=== PATIENT | female | born 1995 | race Hispanic/Latino ===

== ENCOUNTER 2024-12-16 16:30 | Emergency (ER) | payer SELFPAY ==
[2024-12-16 16:41] VITALS: BP 157/97
[2024-12-16 17:20] LABS: Hematocrit 36.6 % (37.0-47.0); Hemoglobin 12.6 g/dL (12.0-16.0); Mean Corp Hgb Conc. 34.4 g/dL (33.0-37.0); Mean Corpuscular Volume 83.2 fL (81.0-99.0); Nucleated Red Blood Cells % 0 %; Platelet Count 406 10^3/uL (130-400); Red Cell Dist. Width 13.0 % (11.5-14.5)
[2024-12-16 17:21] LABS: Urine Character Clear (Clear)
[2024-12-16 17:41] LABS: HCG, Serum Qualitative Screen Positive
[2024-12-16 17:44] LABS: ALT (SGPT) 49 U/L (0-35); AST (SGOT) 34 U/L (14-36); Albumin 4.6 g/dl (3.5-5.0); Alkaline Phosphatase 64 U/L (38-126); Blood Urea Nitrogen 6 mg/dl (7-17); Calcium 9.5 mg/dl (8.4-10.2); Carbon Dioxide 20 mmol/L (22-30); Chloride 107 mmol/L (98-107); Glucose 101 mg/dl (70-99); Lipase 159 U/L (23-300); Potassium 3.6 mmol/L (3.5-5.1); Sodium 137 mmol/L (135-145); Total Protein 8.4 g/dl (6.3-8.2); eGFR > 60.00
[2024-12-16 18:04] LABS: Urine Urothelial Cell 0-2 /LPF (FEW)
[2024-12-16 22:51] LABS: Beta HCG Quantitative 78415.00 mIU/ml
--- NOTE | 2024-12-16 23:23 | ED.GENMED ---
History of Present Illness
General
Chief Complaint: Problems
Source: patient
Exam Limitations: none
Time Seen by Provider: 12/16/24 23:05
Nursing documentation reviewed up to this point in time: agreed with
History of Present Illness
History of Present Illness:
29-year-old female with no reported chronic medical issues G3, P2 who is approximately 8 weeks by dates (last menstrual period 10/19/2024) presents to the emergency department for evaluation of abdominal pain and spotting. Patient reports
that she had a positive test a few weeks ago. She says she has had intermittent cramping. She says she started to have some dark brown spotting and came to the ER this evening to be evaluated. She has not seen anyone for WEB PAGE DEVELOPER care
because she does not yet have insurance. She has not had any symptoms aside from occasional cramping and spotting. She denies passing any clots or bright red blood. She denies any vomiting or fever or any other acute issues. Patient reports 2
previous pregnancies were uncomplicated.
Past History
Past History
ED Past Medical History: None
ED Past Surgical History: None
Social History
Tobacco: Non-smoker
Alcohol: None
Drug: None
Living: with family
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
Family History
Family History: Other (n/c)
Review of Systems
Review of Systems
All Other Systems: ROS reviewed and negative except as documented in HPI and ROS
Constitutional: Denies fever or chills
Respiratory: Denies trouble breathing
Cardiac: Denies chest pain
ABD/GI: Reports abdominal pain; Denies nausea or vomiting
: Reports bleeding (Dark brown spotting); Denies dysuria or flank pain
Musculoskeletal: Denies neck pain or back pain
Neurological: Denies dizzy or headache
Phy Exam
Physical Exam
Physical Exam:
General: Awake, alert, oriented x3; no acute distress
Head: Normocephalic, atraumatic
Eyes: Conjunctiva normal, sclera anicteric
Throat: Airway intact, handling secretions
Neck: Trachea midline, supple without meningismus
Lungs: Clear to auscultation bilaterally, no wheezing, rales, rhonchi
Heart: Regular rate and rhythm, no murmurs, gallops, or rubs�triage tachycardia resolved by my assessment
Abd: Soft, non distended, nontender to deep palpation
Neuro: Grossly intact, ambulatory
Skin: Warm and dry
Extremities: Warm and well-perfused
Scores
Heart Failure Risk
Heart Failure Risk Score: Not Applicable
Heart Score for Chest Pain Patients
STEMI patient?: Not applicable
Withdrawal Assessment of Alcohol
Withdrawal Assessment Completed?: Not applicable
Course
Orders/Labs/Results
Orders:
Orders
12/16/24 16:49
Test Result ONCE
12/16/24 17:03
Beta HCG Quantitative Urgent
Comment: ADDON
CMP [Comprehensive Metabolic Panel] Urgent
Complete Blood Count/With Diff Urgent
Lipase Urgent
, Serum Qualitative Screen [HCG, Serum Qualitative Screen] Urgent
Urinalysis Reflex To Culture Urgent
Date Specimen was Collected: 12/16/24
Time Specimen was Collected: 16:49
Urine Microscopic Reflex Cult Urgent
Urine Culture Urgent
NISSA Source: U
Specimen Description:
Date Specimen was Collected: 12/16/24
Time Specimen was Collected: 16:49
12/16/24 21:36
Add On- LAB Urgent
Tests Added?: hcg quantitative
12/16/24 23:31
Type+Screen Urgent
12/17/24 00:00
US 1st Trimester Urgent
Reason For Exam: abd pain, +preg
Abnormal Lab Results
12/16/24
17:03
Hct 36.6 L %
(37.0-47.0)
Plt Count 406 H 10^3/uL
(130-400)
Carbon Dioxide 20 L mmol/L
(22-30)
BUN 6 L mg/dl
(7-17)
Creatinine 0.5 L mg/dL
(0.6-1.0)
Glucose 101 H mg/dl
(70-99)
ALT 49 H U/L
(0-35)
Total Protein 8.4 H g/dl
(6.3-8.2)
Ur Occult Blood Reflex 1+ A
(Negative)
Leukocyte Esterase Rfl 1+ A
(Negative)
Urine RBC 3-6 A /HPF
(0-2)
Urine Bacteria (Reflex) Moderate A
(Negative)
12/16/24 17:03
12/16/24 17:03
Vital Signs
Initial and Last Documented VS:
Initial Vital Signs
Temp Pulse Resp BP Pulse Ox
36.4 C 118 18 157/97 96
12/16/24 16:41 12/16/24 16:41 12/16/24 16:41 12/16/24 16:41 12/16/24 16:41
Last Documented Vital Signs
Temp Pulse Resp BP Pulse Ox
36.4 C 94 18 119/55 99
12/16/24 16:41 12/17/24 01:31 12/17/24 01:31 12/17/24 01:31 12/17/24 01:31
Information
Weeks gestation: Weeks: (8)
Location: N/A
MDM/Problems Addressed
Differential Diagnosis Includes:
Implantation symptoms, ectopic , threatened AB
MDM/Problems Addressed:
29-year-old female presents for evaluation of intermittent abdominal cramping and dark brown spotting in the setting of recent positive test; she is G3, P2 currently approximately 8 weeks . She has not had any cares thus
far. Vitals and exam as above. She had labs in triage including a CBC and a CMP which showed no clinically significant abnormalities. Her hCG quant is 78,000. Urinalysis likely contaminated but there were bacteria she should be covered with
antibiotics given her . I added the type and screen. Will check pelvic ultrasound. Reassess at the above.
Ultrasound reviewed: Close cervix with intrauterine gestational sac with normal yolk sac and pole�8 weeks by measurements. heart rate 170. There was small perigestational bleed 10 mm along left sac margin. Vital signs stable, patient
comfortable on clinical reassessment. I had a long discussion with the patient about findings and need for outpatient [employer] follow-up. We spoke about following up. Free clinic if patient is unable to obtain insurance. She feels comfortable with
this plan. Will start her on vitamin for the time being. Will cover with antibiotics for bacteriuria noted on UA today. All questions answered.
*Radiology
Radiology exam reviewed: radiology read reviewed
*Pulse Oximetry
SaO2: 96
Oxygen Mode of Delivery: Room air
Patient hypoxic: no (96%)
*Critical Care Note
Total Time (30-74mins, 75-104mins- exclusive of procedures): Not Applicable
Data Reviewed
Source: patient
Patient Management
Social determinants of health affecting care: Financial situation (Uninsured) and Poor outpatient follow-up (No outpatient primary care)
ED Attending Note
-
Portions of this chart may have been created with voice recognition software.� Occasional wrong word or��sound alike� substitutions may have occurred due to the inherent limitations of voice recognition software.
Discharge Plan
Departure
Patient Disposition: Home (Routine Discharge)
Date of Disposition: 12/17/24
Time of Disposition: 01:20
Patient with high blood pressure during this ER visit?: Yes
Discharge Problem:
Abdominal pain during , Asymptomatic bacteriuria during
Instructions: symptoms
Prescriptions:
New
cephalexin 500 mg capsule
500 mg PO QID 5 Days Qty: 20 0RF
Multi 27-800 mg-mcg tablet
1 tab PO DAILY Qty: 60 0RF
No Action
cephalexin 500 MG capsule
500 mg PO QID Qty: 28 0RF
Referrals:
[facility] PAGE DEVELOPER - [facility] [Other, Gynecology] - Call in 1-3 days for appt
[facility]Outside] - Call in 1-3 days for appt
Activity Restrictions/Additional Instructions:
You should follow-up as soon as possible to establish care with an WEB PAGE DEVELOPER�if you not are not able to obtain insurance you can follow-up in free clinic as we discussed.
Thank you for visiting the Emergency Department at [facility].
1. Please schedule a follow up appointment as directed. Call first thing tomorrow morning to make an appointment.
2. If indicated, please take your medications as instructed and indicated on discharge paperwork.
3. If any of your symptoms do not improve, or persist, or become more severe within 6-12 hours, please return to the emergency department for further care.
4. Please return to the emergency department if you develop a headache, neck pain/stiffness, fever greater than 100.4F, chest pain, shortness of breath, persistent nausea, vomiting, slurred speech, difficulty walking, numbness/tingling, weakness,
signs of infection or any other symptoms that are worrisome to you.
Please call [phone] if you have any questions.
Interventions
Interventions:
*Risk Screen - Suicide Last Done: 12/17/24 01:07
*General Assessment Last Done: 12/17/24 01:07
*Neglect/Abuse Screening Last Done: 12/17/24 01:07
*ED- Fall Risk Assessment Last Done: 12/17/24 01:07
*ED COVID-19 Vaccine History Last Done: 12/17/24 01:07
*ED Influenza Vaccine History Last Done: 12/17/24 01:07
*Nursing Disposition Last Done: 12/17/24 02:24
ED-Female Genitourinary Assessment Last Done: 12/17/24 02:24
Discharge Date and Time
Discharge Date/Time: 12/17/24 02:25
Print Language: S[place]
[2024-12-17 01:31] VITALS: BP 119/55
== END 2024-12-17 02:25 | disposition home or self-care (01) ==
LOC: EMR 16:30
PROVIDERS: Emergency Medicine; EMERGENCY PHYSICIAN Emergency Medicine
DX: O26.891 Other specified pregnancy related conditions, first trimester (principal); O23.91 Unspecified genitourinary tract infection in pregnancy, first trimester; Z3A.08 8 weeks gestation of pregnancy; Z59.71 Insufficient health insurance coverage
CPT/HCPCS: 99284; 76801; 80053; 81003; 81015; 83690; 84702; 84703; 85025; 86850; 86900; 86901; 87086